=== PATIENT | female | born 1990 | race Caucasian/White ===

== ENCOUNTER → 2016-11-19 | Outpatient (CLI) | payer BC ==
--- NOTE | 2016-11-22 08:55 | US ---
Examination: Greater than 14 weeks transabdominal ultrasound with color Doppler and M-mode evaluatio n. HISTORY: Normal FINDINGS: LMP is 06/28/2016 EVALUATION: Anterior placenta with a cephalic lie and grade 1. Visually amniotic fluid is with in normal limits. Three-vessel cord is seen. Ventricles are within normal limits. Nuchal fold thickness is 2 mm. Four chamber heart is noted. Heart rate is 153 beats per minute. BIOMETRY AND GESTATIONAL AGE: Biparietal diameter 4.7 cm. The abdominal circumference measures 15.9 cm. The femoral length is 3.3 cm with head circumference of 17.8 cm. Gestational age is 20 weeks and 3 days. The expected date of delivery is approximately 04/05/2017. Fetus weight is 365 grams. Overall the fetus is within the 46th percentile. Other detail anatomy summarized into PACs sheet after the images. No anatomical anomalies. IMPRESSION: Single active IU with cephalic fetus. Anterior placenta with grade 1, no placenta previa. No anomalies are seen. Amniotic fluid appears within normal limits.
== END ==
LOC: MW.US 10:45
PROVIDERS: ATTEND Advanced Practice Midwife
DX: Z34.90 Encounter for supervision of normal pregnancy, unspecified, unspecified trimester (principal)
CPT/HCPCS: 76805; 76805-26

== ENCOUNTER → 2016-12-31 | Outpatient (CLI) | payer BC | LOC: MW.CHOBGYN 08:19 | PROVIDERS: ATTEND Advanced Practice Midwife | DX: Z34.90 Encounter for supervision of normal pregnancy, unspecified, unspecified trimester (principal) | CPT/HCPCS: 36415; 82950; 85027; 86850 ==

== ENCOUNTER 2017-03-22 20:21 | Inpatient (IN) | payer BC ==
[2017-03-22] MEDS ORDERED: Methylergonovine 0.2 MG/1 ML Amp IM PRN (20:49)
[2017-03-22] MEDS ORDERED: Acetaminophen 325 MG Tab PO PRN (20:49)
[2017-03-22] MEDS ORDERED: Ampicillin 2 GM in Sodium Chloride 0.9% 100 ML IV ONE (20:49)
[2017-03-22] MEDS ORDERED: Misoprostol 200 MCG Tab PO PRN (20:49)
[2017-03-22] MEDS ORDERED: Nalbuphine 10 MG/1 ML Vial IVPUSH PRN (20:49)
[2017-03-22] MEDS ORDERED: Carboprost Tromethamine 250 MCG/1 ML Amp IM PRN (20:49)
[2017-03-22] MEDS ORDERED: Sodium Chloride 0.9% 2.5 ML Syringe FLUSH PRN (20:49)
[2017-03-22] MEDS ORDERED: Lidocaine 1% 50 ML MDV INJECT PRN (20:49)
[2017-03-22] MEDS ORDERED: Sodium Chloride 0.9% 10 ML Syringe FLUSH PRN (20:49)
[2017-03-22] MEDS ORDERED: Water For Irrigation,Sterile 1,000 ML Container IRR PRN (20:49)
[2017-03-22] MEDS ORDERED: Butorphanol 1 MG/ML SDV IVPUSH PRN (20:49)
[2017-03-22] MEDS ORDERED: Acetaminophen 500 MG Tab PO ONE (20:56)
[2017-03-22] MEDS ORDERED: Oxytocin/Lactated Ringers 30 UNIT/500 ML BAG IV SCH (21:00)
[2017-03-22] MEDS: Lactated Ringers 1,000 ML IV SCH (21:22)
--- NOTE | 2017-03-22 21:26 | PCM.LDHP ---
L&D History of Present Illness - General Date of Service: 03/22/17 Admit Problem/Dx: Patient Status Order with Admit Dx/Problem 03/22/17 20:49 Patient Status [ADT] Routine Admission Diagnosis/Problem Admission Diagnosis/Problem 03/22/17 21:20 26 yo EDC 04/04/2017 38 1/7wks A+, RI, GBS pos. SROM clear fluid 1930 tonight. Source of Information: Patient History Limitations: Reports: No Limitations - History of Present Illness Improves with: Reports: None Worsens with: Reports: None Associated Symptoms: Reports: N - Related Data Allergies/Adverse Reactions: Allergies Allergy/AdvReac Type Severity Reaction Status Date / Time Sulfa (Sulfonamide Allergy Vomiting Verified 06/08/15 11:01 Antibiotics) Home Medications: Home Meds Vitamins Daily 1 tab PO DAILY 06/08/15 [History] Past Medical History - Past Health History Medical/Surgical History: Denies Medical/Surgical History Social & Family History - Tobacco Use Smoking Status *Q: Never Smoker - Alcohol Use Days Per Week of Alcohol Use: 0 - Recreational Drug Use Recreational Drug Use: No H&P Review of Systems - Review of Systems: Review Of Systems: See Below General: Reports: No Symptoms HEENT: Reports: No Symptoms Pulmonary: Reports: No Symptoms Cardiovascular: Reports: No Symptoms Gastrointestinal: Reports: No Symptoms Genitourinary: Reports: No Symptoms Musculoskeletal: Reports: No Symptoms Skin: Reports: No Symptoms Psychiatric: Reports: No Symptoms Neurological: Reports: No Symptoms Hematologic/Lymphatic: Reports: No Symptoms Immunologic: Reports: No Symptoms L&D Exam - Exam Exam: See Below - Vital Signs Vital Signs: Last Vital Signs Temp 38.2 C H 03/22/17 21:18 Pulse Resp BP Pulse Ox Weight: 50.349 kg - OB Specific Presentation: Vertex - Zacarias Score Zacarias Score Cervix Position: Midposition Zacarias Score Consistency: Soft Zacarias Score Effacement: >80% Zacarias Score Dilation: 3-4 cm Zacarias Score Infant's Station: -2 Zacarias Score Total: 9 - Exam General: Alert, Oriented, Cooperative Lungs: Normal Respiratory Effort GI/Abdominal Exam: Soft, Non-Tender, No Organomegaly Rectal Exam: Deferred Genitourinary: Cervical dilitation, Cervical fluid Back Exam: Full Range of Motion, Vertebral Tenderness Extremities: Non-Tender, No Pedal Edema Skin: Warm, Dry, Intact Neurological: Reflexes Equal Bilateral, Normal Speech, Normal Tone Psychiatric: Alert, Normal Affect, Normal Mood - Problem List (1) Supervision of normal IUP (intrauterine ) in primigravida SNOMED Code(s): 91367563, 464776026, 477418784, 143733171 ICD Code: Z34.00 - ENCNTR FOR SUPRVSN OF NORMAL FIRST , UNSP TRIMESTER Status: Acute Priority: High Current Visit: Yes Qualifiers: Trimester: third trimester Qualified Code(s): Z34.03 - Encounter for supervision of normal first , third trimester (2) SROM (spontaneous rupture of membranes) SNOMED Code(s): 585782009 ICD Code: MXF3187 - Status: Acute Priority: High Current Visit: Yes Problem List Initiated/Reviewed/Updated: Yes Orders Last 24hrs: Active Orders 24 hr Category Date Time Status Patient Status [ADT] Routine ADT 03/22/17 20:49 Active Heart Tones [RC] CONTINUOUS Care 03/22/17 20:49 Active Non Stress Test [RC] PER UNIT ROUTINE Care 03/22/17 20:49 Active May Shower [RC] ASDIRECTED Care 03/22/17 20:49 Active Notify Provider [RC] PRN Care 03/22/17 20:49 Active Up ad Tarah [RC] ASDIRECTED Care 03/22/17 20:49 Active Vaginal Exam [RC] PRN Care 03/22/17 20:49 Active Vital Signs [RC] PER UNIT ROUTINE Care 03/22/17 20:49 Active Clear Liquid Diet [DIET] Diet 03/23/17 Breakfast Active CBC W/O DIFF,HEMOGRAM [HEME] Routine Lab 03/22/17 20:49 Ordered TYPE AND SCREEN [BBK] Routine Lab 03/22/17 20:49 Ordered Acetaminophen [Tylenol] Med 03/22/17 20:49 Active 650 mg PO Q4H PRN Ampicillin 1 gm Med 03/23/17 01:00 Active Sodium Chloride 0.9% [Normal Saline] 50 ml IV Q4H Butorphanol [Stadol] Med 03/22/17 20:49 Active 1 mg IVPUSH Q1H PRN Carboprost Tromethamine [Hemabate DS] Med 03/22/17 20:49 Active 250 mcg IM ASDIRECTED PRN Lactated Ringers [Ringers, Lactated] 1,000 ml Med 03/22/17 21:00 Active IV ASDIRECTED Lidocaine 1% [Xylocaine 1%] Med 03/22/17 20:49 Active 50 ml INJECT .ONCE PRN Methylergonovine [Methergine] Med 03/22/17 20:49 Active 0.2 mg IM ASDIRECTED PRN Misoprostol [Cytotec] Med 03/22/17 20:49 Active 200 mcg PO .ONCE PRN Nalbuphine [Nubain] Med 03/22/17 20:49 Active 10 mg IVPUSH Q1H PRN Oxytocin/Lactated Ringers [Pitocin in LR 30 Units/500 Med 03/22/17 21:00 Active ML] 30 unit in 500 ml IV TITRATE Sodium Chloride 0.9% [Saline Flush] Med 03/22/17 20:49 Active 10 ml FLUSH ASDIRECTED PRN Sodium Chloride 0.9% [Saline Flush] Med 03/22/17 20:49 Active 2.5 ml FLUSH ASDIRECTED PRN Water For Irrigation,Sterile [Sterile Water for Med 03/22/17 20:49 Active Irrigation] 1,000 ml IRR ASDIRECTED PRN Scalp Electrode [WOMSER] Per Unit Routine Oth 03/22/17 20:49 Ordered Peripheral IV Insertion Adult [OM.PC] Routine Oth 03/22/17 20:49 Ordered Resuscitation Status Routine Resus Stat 03/22/17 20:49 Ordered Medication Orders Acetaminophen (Tylenol) 650 mg PO Q4H PRN PRN Reason: mild pain and fever Butorphanol Tartrate (Stadol) 1 mg IVPUSH Q1H PRN PRN Reason: Pain Carboprost Tromethamine (Hemabate Ds) 250 mcg IM ASDIRECTED PRN PRN Reason: Post Hemorrhage Lactated Ringer's (Ringers, Lactated) 1,000 mls @ 150 mls/hr IV ASDIRECTED SUDHA Oxytocin/Lactated Ringer's (Pitocin In Lr 30 Units/500 Ml) 30 unit in 500 mls @ 999 mls/hr IV TITRATE SUDHA; 999 MUNITS/MIN PRN Reason: Protocol Stop: 03/22/17 21:31 Ampicillin Sodium 1 gm/ Sodium (Chloride) 50 mls @ 100 mls/hr IV Q4H SUDHA Lidocaine HCl (Xylocaine 1%) 50 ml INJECT .ONCE PRN PRN Reason: Laceration repair Methylergonovine Maleate (Methergine) 0.2 mg IM ASDIRECTED PRN PRN Reason: Post Hemorrhage Misoprostol (Cytotec) 200 mcg PO .ONCE PRN PRN Reason: Post Hemorrhage Nalbuphine HCl (Nubain) 10 mg IVPUSH Q1H PRN PRN Reason: Pain (severe 7-10) Stop: 03/22/17 22:50 Sodium Chloride (Saline Flush) 10 ml FLUSH ASDIRECTED PRN PRN Reason: Keep Vein Open Sodium Chloride (Saline Flush) 2.5 ml FLUSH ASDIRECTED PRN PRN Reason: Keep Vein Open Sterile Water (Sterile Water For Irrigation) 1,000 ml IRR ASDIRECTED PRN PRN Reason: delivery Assessment/Plan Comment:: Labor A: 26 yo EDC 04/04/2017 38 1/7wks A+, RI, GBS pos. SROM clear fluid 1930 tonight. Temp of 100.7 P: Admit, antibiotic for GBS pos. Tylenol for temp, pain meds prn
[2017-03-23] MEDS ORDERED: Acetaminophen 325 MG Tab PO PRN (00:06)
[2017-03-23] MEDS: Ampicillin 1 GM in Sodium Chloride 0.9% 50 ML IV SCH ×4 (01:09→13:12)
[2017-03-23] MEDS ORDERED: Oxytocin/Lactated Ringers 30 UNIT/500 ML BAG IV SCH (03:00)
[2017-03-23] MEDS ORDERED: Oxytocin/Lactated Ringers 30 UNIT/500 ML BAG ONE (03:04)
[2017-03-23] MEDS: Lactated Ringers 1,000 ML IV SCH ×3 (09:05→11:04)
[2017-03-23] MEDS ORDERED: Ondansetron 4 MG/2 ML SDV IVPUSH PRN (09:22)
--- NOTE | 2017-03-23 10:06 | PCM.PREANE ---
Preanesthetic Assessment - Procedure Proposed Procedure: JEANNINE - Anesthesia/Transfusion/Family Hx Anesthesia History: No Prior Anesthesia Family History of Anesthesia Reaction: No - Review of Systems General: No Symptoms Pulmonary: No Symptoms Cardiovascular: No Symptoms Gastrointestinal: No Symptoms Neurological: No Symptoms Other: Reports: None - Physical Assessment Temperature: 38.2 C Vital Signs: Last Vital Signs Temp 38.2 C H 03/22/17 21:18 Pulse Resp BP Pulse Ox Height: 1.68 m Weight: 50.349 kg ASA Class: 1 Mental Status: Alert & Oriented x3 Dentition: Reports: Normal Dentition Lungs: Clear to Auscultation, Normal Respiratory Effort Cardiovascular: Regular Rate, Regular Rhythm - Lab Values: Laboratory Last Values WBC 19.40 K/uL (4.0-11.0) H 03/22/17 21:19 RBC 3.82 M/uL (4.30-5.90) L 03/22/17 21:19 Hgb 9.9 g/dL (12.0-16.0) L 03/22/17 21:19 Hct 30.6 % (36.0-46.0) L 03/22/17 21:19 MCV 80.1 fL (80.0-98.0) 03/22/17 21:19 MCH 25.9 pg (27.0-32.0) L 03/22/17 21:19 MCHC 32.4 g/dL (31.0-37.0) 03/22/17 21:19 RDW Std Deviation 43.8 fl (28.0-62.0) 03/22/17 21:19 RDW Coeff of Carola 15 % (11.0-15.0) 03/22/17 21:19 Plt Count 290 K/uL (150-400) 03/22/17 21:19 MPV 10.60 fL (7.40-12.00) 03/22/17 21:19 Nucleated RBC % 0.0 /100WBC 03/22/17 21:19 Nucleated RBCs # 0 K/uL 03/22/17 21:19 Blood Type A POSITIVE 03/22/17 21:19 Antibody Screen NEGATIVE 03/22/17 21:19 - Allergies Allergies/Adverse Reactions: Allergies Allergy/AdvReac Type Severity Reaction Status Date / Time Sulfa (Sulfonamide Allergy Vomiting Verified 06/08/15 11:01 Antibiotics) - Blood Blood Available: Yes - Anesthesia Plan Pre-Op Medication Ordered: None - Acknowledgements Anesthesia Type Planned: Epidural Pt an Appropriate Candidate for the Planned Anesthesia: Yes Alternatives and Risks of Anesthesia Discussed w Pt/Guardian: Yes Pt/Guardian Understands and Agrees with Anesthesia Plan: Yes PreAnesthesia Questionnaire - Past Health History Medical/Surgical History: Denies Medical/Surgical History Other Gastrointestinal History: GERD with Genitourinary History: Reports: UTI, Recurrent CLIENT INTEGRATION 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 History: Reports: Spontaneous - SUBSTANCE USE Smoking Status *Q: Never Smoker Days Per Week of Alcohol Use: 0 Recreational Drug Use History: No - HOME MEDS Home Medications: Home Meds Vitamins Daily 1 tab PO DAILY 06/08/15 [History] - CURRENT (IN HOUSE) MEDS Current Meds: Current Medications Acetaminophen (Tylenol) 650 mg PO Q4H PRN PRN Reason: Fever Butorphanol Tartrate (Stadol) 1 mg IVPUSH Q1H PRN PRN Reason: Pain Last Admin: 03/23/17 07:59 Dose: 1 mg Carboprost Tromethamine (Hemabate Ds) 250 mcg IM ASDIRECTED PRN PRN Reason: Post Hemorrhage Lactated Ringer's (Ringers, Lactated) 1,000 mls @ 150 mls/hr IV ASDIRECTED SUDHA Last Admin: 03/23/17 09:05 Dose: 999 mls/hr Ampicillin Sodium 1 gm/ Sodium (Chloride) 50 mls @ 100 mls/hr IV Q4H SUDHA Last Admin: 03/23/17 09:18 Dose: 100 mls/hr Oxytocin/Lactated Ringer's (Pitocin In Lr 30 Units/500 Ml) 30 unit in 500 mls @ 2 mls/hr IV TITRATE SUDHA; 2 MUNITS/MIN PRN Reason: Protocol Last Titration: 03/23/17 07:49 Dose: 12 munits/min, 12 mls/hr Lidocaine HCl (Xylocaine 1%) 50 ml INJECT .ONCE PRN PRN Reason: Laceration repair Methylergonovine Maleate (Methergine) 0.2 mg IM ASDIRECTED PRN PRN Reason: Post Hemorrhage Misoprostol (Cytotec) 200 mcg PO .ONCE PRN PRN Reason: Post Hemorrhage Ondansetron HCl (Zofran) 4 mg IVPUSH Q4H PRN PRN Reason: Nausea Last Admin: 03/23/17 09:58 Dose: 4 mg Sodium Chloride (Saline Flush) 10 ml FLUSH ASDIRECTED PRN PRN Reason: Keep Vein Open Sodium Chloride (Saline Flush) 2.5 ml FLUSH ASDIRECTED PRN PRN Reason: Keep Vein Open Sterile Water (Sterile Water For Irrigation) 1,000 ml IRR ASDIRECTED PRN PRN Reason: delivery Discontinued Medications Acetaminophen (Tylenol) 650 mg PO Q4H PRN PRN Reason: mild pain and fever Acetaminophen (Tylenol Extra Strength) 1,000 mg PO ONETIME ONE Stop: 03/22/17 20:57 Last Admin: 03/22/17 21:18 Dose: 1,000 mg Ampicillin Sodium 2 gm/ Sodium (Chloride) 100 mls @ 200 mls/hr IV ONETIME ONE Stop: 03/22/17 21:18 Last Admin: 03/22/17 21:34 Dose: 200 mls/hr Oxytocin/Lactated Ringer's (Pitocin In Lr 30 Units/500 Ml) 30 unit in 500 mls @ 999 mls/hr IV TITRATE SUDHA; 999 MUNITS/MIN PRN Reason: Protocol Stop: 03/22/17 21:31 Oxytocin/Lactated Ringer's (Pitocin In Lr 30 Units/500 Ml) Confirm Administered Dose 30 unit in 500 mls @ as directed .ROUTE .STK-MED ONE Stop: 03/23/17 03:05 Nalbuphine HCl (Nubain) 10 mg IVPUSH Q1H PRN PRN Reason: Pain (severe 7-10) Stop: 03/22/17 22:50
[2017-03-23] MEDS ORDERED: fentaNYL 100 MCG/2 ML SDV ONE ×2 (10:09→18:16)
[2017-03-23] MEDS ORDERED: Ropivacaine HCl/PF 100 ML ONE ×2 (10:09→18:17)
[2017-03-23] MEDS ORDERED: Ranitidine 15 MG/ML Syrup 10 ML UD Cup PO ONE (15:30)
[2017-03-23] MEDS ORDERED: Benzocaine/Menthol 20%-0.5% Spray 78 GM Cannister TOP PRN (19:27)
[2017-03-23] MEDS ORDERED: Acetaminophen 500 MG Tab PO PRN (19:27)
[2017-03-23] MEDS ORDERED: Lanolin 100% Cream 7 GM Tube TOP PRN (19:27)
[2017-03-23] MEDS ORDERED: oxyCODONE 5 MG Tab PO PRN (19:27)
[2017-03-23] MEDS ORDERED: Witch Hazel Medicated Pads 40/Jar TOP PRN (19:27)
[2017-03-23] MEDS ORDERED: Ibuprofen 400 MG Tab PO PRN (19:27)
[2017-03-23] MEDS ORDERED: Bisacodyl 10 MG Supp RECTAL PRN (19:27)
--- NOTE | 2017-03-23 19:34 | PCM.DEL ---
L & D Note - General Info Date of Service: 03/23/17 Mother's Due Date: 04/04/17 - Delivery Note Labor: Spontaneous, Augmented by Oxytocin Delivery Outcome: Livebirth Infant Delivery Method: Spontaneous Vaginal Delivery Delivery Mode: Spontaneous Presentation: Vertex Nuchal Cord: Present Anesthesia Type: Epidural Anesthetic: Lidocaine (Xylocaine) 1% Plain Local Anesthetic Volume: 2cc Amniotic Fluid Description: Clear Episiotomy Type: None Laceration: 2nd Degree, Sulcus Suture type: Vicryl Suture size: 3-0 Placenta: Intact, Spontaneous Cord: 3 Vessels Estimated Blood Loss: 200 Resuscitation Needed: No : Warmed Score 1 min: 5 Score 5 min: 7 Score 10 min: 8 Second Stage Interventions: Reports: Pushing Effectively, Pushing, Pulls Own Legs Back Delivery Comments (Free Text/Narrative):: of viable male over intact perineum. Head delivered with good pushing, nuchle x1 reduced over head, shoulders and body followed easily. Infant to mothers abd with RN at for evaluation. stunned and not crying at 45sec of life. CC x2 and cut. Inf to warmer with spont cry. O2 sats good. Pitocin to IVF. Placenta delivered grossly intact. Inspection noted 2nd degree sulcus tear, repaired with 3-0 yajaira in usual manor. EBL 200cc, APGARS 5/7/8. Wt pending bonding with mother. Induction Criteria - Augmentation Estimated Pelvis: Reports: Adequate Weight Estimated:: Reports: AGA Reassuring Monitoring Strip: Yes Absence of Tachy Systole: Yes - General Info Date of Service: 03/23/17 Admission Dx/Problem (Free Text): Patient Status Order with Admit Dx/Problem 03/22/17 20:49 Patient Status [ADT] Routine Admission Diagnosis/Problem Admission Diagnosis/Problem 03/22/17 21:20 26 yo EDC 04/04/2017 38 1/7wks A+, RI, GBS pos. SROM clear fluid 1930 tonight. Functional Status: Reports: Pain Controlled, Tolerating Diet - Review of Systems General: Reports: No Symptoms HEENT: Reports: No Symptoms Pulmonary: Reports: No Symptoms Cardiovascular: Reports: No Symptoms Gastrointestinal: Reports: No Symptoms Genitourinary: Reports: No Symptoms Musculoskeletal: Reports: No Symptoms Skin: Reports: No Symptoms Neurological: Reports: No Symptoms Psychiatric: Reports: No Symptoms - Patient Data Vitals - Most Recent: Last Vital Signs Temp 38.2 C H 03/23/17 10:06 Pulse Resp BP Pulse Ox Weight - Most Recent: 50.349 kg Lab Results Last 24 Hours: Laboratory Results - last 24 hr 03/22/17 03/22/17 Range/Units 21:19 21:19 WBC 19.40 H (4.0-11.0) K/uL RBC 3.82 L (4.30-5.90) M/uL Hgb 9.9 L (12.0-16.0) g/dL Hct 30.6 L (36.0-46.0) % MCV 80.1 (80.0-98.0) fL MCH 25.9 L (27.0-32.0) pg MCHC 32.4 (31.0-37.0) g/dL RDW Std Deviation 43.8 (28.0-62.0) fl RDW Coeff of Carola 15 (11.0-15.0) % Plt Count 290 (150-400) K/uL MPV 10.60 (7.40-12.00) fL Nucleated RBC % 0.0 /100WBC Nucleated RBCs # 0 K/uL Blood Type A POSITIVE Antibody Screen NEGATIVE Med Orders - Current: Current Medications Discontinued Medications Acetaminophen (Tylenol) 650 mg PO Q4H PRN PRN Reason: mild pain and fever Acetaminophen (Tylenol Extra Strength) 1,000 mg PO ONETIME ONE Stop: 03/22/17 20:57 Last Admin: 03/22/17 21:18 Dose: 1,000 mg Acetaminophen (Tylenol) 650 mg PO Q4H PRN PRN Reason: Fever Butorphanol Tartrate (Stadol) 1 mg IVPUSH Q1H PRN PRN Reason: Pain Last Admin: 03/23/17 07:59 Dose: 1 mg Carboprost Tromethamine (Hemabate Ds) 250 mcg IM ASDIRECTED PRN PRN Reason: Post Hemorrhage Fentanyl (Sublimaze) Confirm Administered Dose 100 mcg .ROUTE .STK-MED ONE Stop: 03/23/17 10:10 Last Admin: 03/23/17 10:56 Dose: Not Given Fentanyl (Sublimaze) Confirm Administered Dose 100 mcg .ROUTE .STK-MED ONE Stop: 03/23/17 18:17 Ampicillin Sodium 2 gm/ Sodium (Chloride) 100 mls @ 200 mls/hr IV ONETIME ONE Stop: 03/22/17 21:18 Last Admin: 03/22/17 21:34 Dose: 200 mls/hr Lactated Ringer's (Ringers, Lactated) 1,000 mls @ 150 mls/hr IV ASDIRECTED SUDHA Last Admin: 03/23/17 11:04 Dose: 150 mls/hr Oxytocin/Lactated Ringer's (Pitocin In Lr 30 Units/500 Ml) 30 unit in 500 mls @ 999 mls/hr IV TITRATE SUDHA; 999 MUNITS/MIN PRN Reason: Protocol Stop: 03/22/17 21:31 Ampicillin Sodium 1 gm/ Sodium (Chloride) 50 mls @ 100 mls/hr IV Q4H SUDHA Last Admin: 03/23/17 13:12 Dose: 100 mls/hr Oxytocin/Lactated Ringer's (Pitocin In Lr 30 Units/500 Ml) 30 unit in 500 mls @ 2 mls/hr IV TITRATE SUDHA; 2 MUNITS/MIN PRN Reason: Protocol Last Titration: 03/23/17 15:45 Dose: 16 munits/min, 16 mls/hr Oxytocin/Lactated Ringer's (Pitocin In Lr 30 Units/500 Ml) Confirm Administered Dose 30 unit in 500 mls @ as directed .ROUTE .[facility]-MED ONE Stop: 03/23/17 03:05 Last Admin: 03/23/17 10:55 Dose: Not Given Ropivacaine (Naropin 0.2%) Confirm Administered Dose 100 mls @ as directed .ROUTE .[facility]-MED ONE Stop: 03/23/17 10:10 Last Admin: 03/23/17 10:55 Dose: Not Given Ropivacaine (Naropin 0.2%) Confirm Administered Dose 100 mls @ as directed .ROUTE .[facility]-MED ONE Stop: 03/23/17 18:18 Lidocaine HCl (Xylocaine 1%) 50 ml INJECT .ONCE PRN PRN Reason: Laceration repair Methylergonovine Maleate (Methergine) 0.2 mg IM ASDIRECTED PRN PRN Reason: Post Hemorrhage Misoprostol (Cytotec) 200 mcg PO .ONCE PRN PRN Reason: Post Hemorrhage Nalbuphine HCl (Nubain) 10 mg IVPUSH Q1H PRN PRN Reason: Pain (severe 7-10) Stop: 03/22/17 22:50 Ondansetron HCl (Zofran) 4 mg IVPUSH Q4H PRN PRN Reason: Nausea Last Admin: 03/23/17 09:58 Dose: 4 mg Ranitidine HCl (Zantac) 150 mg PO ONETIME ONE Stop: 03/23/17 15:31 Last Admin: 03/23/17 15:28 Dose: 150 mg Sodium Chloride (Saline Flush) 10 ml FLUSH ASDIRECTED PRN PRN Reason: Keep Vein Open Sodium Chloride (Saline Flush) 2.5 ml FLUSH ASDIRECTED PRN PRN Reason: Keep Vein Open Sterile Water (Sterile Water For Irrigation) 1,000 ml IRR ASDIRECTED PRN PRN Reason: delivery - Exam General: Alert, Oriented, Cooperative, No Acute Distress Lungs: Normal Respiratory Effort GI/Abdominal Exam: Soft, Non-Tender, No Organomegaly (Female) Exam: Normal External Exam, Normal Bimanual Exam, Vaginal Bleeding, Vaginal Tears Back Exam: Full Range of Motion Extremities: Normal Range of Motion, Non-Tender, Pedal Edema Skin: Warm, Dry, Intact Wound/Incisions: Healing Well Neurological: No New Focal Deficit, Normal Speech, Normal Tone Psy/Mental Status: Alert, Normal Affect, Normal Mood - Problem List & Annotations (1) Supervision of normal IUP (intrauterine ) in primigravida SNOMED Code(s): 83552336, 564231583, 618623778, 934480366 Code(s): Z34.00 - ENCNTR FOR SUPRVSN OF NORMAL FIRST , UNSP TRIMESTER Status: Acute Priority: High Current Visit: Yes Qualifiers: Trimester: third trimester Qualified Code(s): Z34.03 - Encounter for supervision of normal first , third trimester (2) SROM (spontaneous rupture of membranes) SNOMED Code(s): 663687299 Code(s): BSF8143 - Status: Acute Priority: High Current Visit: Yes (3) (normal spontaneous vaginal delivery) SNOMED Code(s): 86340437 Code(s): O80 - ENCOUNTER FOR FULL-TERM UNCOMPLICATED DELIVERY Status: Acute Priority: Medium Current Visit: Yes - Problem List Review Problem List Initiated/Reviewed/Updated: Yes - My Orders Last 24 Hours: My Active Orders 03/22/17 20:49 Heart Tones [RC] CONTINUOUS Non Stress Test [RC] PER UNIT ROUTINE May Shower [RC] ASDIRECTED Notify Provider [RC] PRN Up ad Tarah [RC] ASDIRECTED Vaginal Exam [RC] PRN Vital Signs [RC] PER UNIT ROUTINE 03/23/17 19:27 Acetaminophen [Tylenol Extra Strength] 1,000 mg PO Q4H PRN Acetaminophen [Tylenol Extra Strength] 500 mg PO Q4H PRN Benzocaine/Menthol [Dermoplast Pain Relief 20%-0.5% [place]] 78 gm TOP ASDIRECTED PRN Bisacodyl [Dulcolax] 10 mg RECTAL .ONCE PRN Docusate Sodium [Colace] 100 mg PO BID PRN Ibuprofen [Motrin] 400 mg PO Q4H PRN Ibuprofen [Motrin] 800 mg PO Q6H PRN Lanolin [Lansinoh HPA] See Dose Instructions TOP ASDIRECTED PRN Witch Mara [Tucks] 1 pad TOP ASDIRECTED PRN oxyCODONE 5 mg PO Q2H PRN Resuscitation Status Routine 03/23/17 19:28 Patient Status [ADT] Routine December Shower [RC] ASDIRECTED Up ad Tarah [RC] ASDIRECTED Vital Signs [RC] PER UNIT ROUTINE Assess Lochia [WOMSER] Per Unit Routine Assess Uterine Involution [WOMSER] Per Unit Routine Peripheral IV Discontinue [OM.PC] Routine 03/24/17 Breakfast Regular Diet [DIET] - Assessment Assessment:: of healthy boy, APGARS 5/7/8, Wt pending bonding. EBL 200cc, 2nd degree lac with repair, Bonding well. - Plan Plan:: Labor A: 26 yo EDC 04/04/2017 38 1/7wks A+, RI, GBS pos. SROM clear fluid 1930 tonight. Temp of 100.7 P: Admit, antibiotic for GBS pos. Tylenol for temp, pain meds prn Delivery routine pp plan of care.
[2017-03-23] MEDS: Ibuprofen 800 MG Tab PO PRN (19:57)
[2017-03-23] MEDS: Acetaminophen 500 MG Tab PO PRN ×2 (19:57→23:38)
[2017-03-23] MEDS: Docusate Sodium 100 MG Cap PO PRN (19:58)
--- NOTE | 2017-03-24 08:21 | PCM.DCSUM1 ---
Discharge Summary - Hospital Course Free Text/Narrative:: Discharge home with infant. Follow up in 6 weeks or sooner if needed. - Discharge Data Discharge Date: 03/24/17 Discharge Disposition: Home, Self-Care 01 Condition: Good - Discharge Diagnosis/Problem(s) (1) Supervision of normal IUP (intrauterine ) in primigravida SNOMED Code(s): 59614444, 585679446, 536282088, 677302119 ICD Code: Z34.00 - ENCNTR FOR SUPRVSN OF NORMAL FIRST , UNSP TRIMESTER Status: Acute Priority: High Current Visit: Yes Qualifiers: Trimester: third trimester Qualified Code(s): Z34.03 - Encounter for supervision of normal first , third trimester (2) SROM (spontaneous rupture of membranes) SNOMED Code(s): 916322637 ICD Code: [id number] - Status: Acute Priority: High Current Visit: Yes (3) (normal spontaneous vaginal delivery) SNOMED Code(s): 43356777 ICD Code: O80 - ENCOUNTER FOR FULL-TERM UNCOMPLICATED DELIVERY Status: Acute Priority: Medium Current Visit: Yes - Patient Instructions Diet: Usual Diet as Tolerated Activity: As Tolerated, Non Weight Bearing Driving: May Drive Today Showering/Bathing: May Shower Notify Provider of: Fever, Increased Pain, Swelling and Redness, Nausea and/or Vomiting Other/Special Instructions: Discharge home with infant. Follow up in 6 weeks or sooner if needed. - Discharge Plan Home Medications: Home Meds Vitamins Daily 1 tab PO DAILY 06/08/15 [History] Referrals: [facility] [Outside] Jacque Hatch CNM [Primary Care Provider] - 05/04/17 10:45 am - General Info Date of Service: 03/24/17 Admission Dx/Problem (Free Text: Patient Status Order with Admit Dx/Problem 03/22/17 20:49 Patient Status [ADT] Routine Admission Diagnosis/Problem Admission Diagnosis/Problem 03/22/17 21:20 26 yo EDC 04/04/2017 38 1/7wks A+, RI, GBS pos. SROM clear fluid 1930 tonight. Functional Status: Reports: Pain Controlled, Tolerating Diet, Ambulating, Urinating - Review of Systems General: Reports: No Symptoms HEENT: Reports: No Symptoms Pulmonary: Reports: No Symptoms Cardiovascular: Reports: No Symptoms Gastrointestinal: Reports: No Symptoms Genitourinary: Reports: No Symptoms Musculoskeletal: Reports: No Symptoms Skin: Reports: No Symptoms Neurological: Reports: No Symptoms Psychiatric: Reports: No Symptoms - Patient Data Vitals - Most Recent: Last Vital Signs Temp 36.5 C 03/24/17 04:00 Pulse 68 03/24/17 04:00 Resp 16 03/24/17 04:00 BP 105/64 03/24/17 04:00 Pulse Ox 98 03/24/17 04:00 Weight - Most Recent: 50.349 kg Med Orders - Current: Current Medications Acetaminophen (Tylenol Extra Strength) 500 mg PO Q4H PRN PRN Reason: Pain Acetaminophen (Tylenol Extra Strength) 1,000 mg PO Q4H PRN PRN Reason: Pain Last Admin: 03/23/17 23:38 Dose: 1,000 mg Benzocaine/Menthol (Dermoplast Pain Relief 20%-0.5% [place]) 78 gm TOP ASDIRECTED PRN PRN Reason: Perineal Comfort Measure Last Admin: 03/23/17 19:59 Dose: 1 canister Bisacodyl (Dulcolax) 10 mg RECTAL .ONCE PRN PRN Reason: Constipation Docusate Sodium (Colace) 100 mg PO BID PRN PRN Reason: Constipation Last Admin: 03/23/17 19:58 Dose: 100 mg Emollient Ointment (Lansinoh Hpa) 0 gm TOP ASDIRECTED PRN PRN Reason: Sore Nipples Last Admin: 03/23/17 19:58 Dose: 1 tube Ibuprofen (Motrin) 400 mg PO Q4H PRN PRN Reason: Pain Ibuprofen (Motrin) 800 mg PO Q6H PRN PRN Reason: Pain Last Admin: 03/23/17 19:57 Dose: 800 mg Oxycodone HCl (Oxycodone) 5 mg PO Q2H PRN PRN Reason: Pain Witch Mara (Tucks) 1 pad TOP ASDIRECTED PRN PRN Reason: comfort care Last Admin: 03/23/17 19:58 Dose: 1 tub Discontinued Medications Acetaminophen (Tylenol) 650 mg PO Q4H PRN PRN Reason: mild pain and fever Acetaminophen (Tylenol Extra Strength) 1,000 mg PO ONETIME ONE Stop: 03/22/17 20:57 Last Admin: 03/22/17 21:18 Dose: 1,000 mg Acetaminophen (Tylenol) 650 mg PO Q4H PRN PRN Reason: Fever Butorphanol Tartrate (Stadol) 1 mg IVPUSH Q1H PRN PRN Reason: Pain Last Admin: 03/23/17 07:59 Dose: 1 mg Carboprost Tromethamine (Hemabate Ds) 250 mcg IM ASDIRECTED PRN PRN Reason: Post Hemorrhage Fentanyl (Sublimaze) Confirm Administered Dose 100 mcg .ROUTE .STK-MED ONE Stop: 03/23/17 10:10 Last Admin: 03/23/17 10:56 Dose: Not Given Fentanyl (Sublimaze) Confirm Administered Dose 100 mcg .ROUTE .STK-MED ONE Stop: 03/23/17 18:17 Last Admin: 03/23/17 19:57 Dose: Not Given Ampicillin Sodium 2 gm/ Sodium (Chloride) 100 mls @ 200 mls/hr IV ONETIME ONE Stop: 03/22/17 21:18 Last Admin: 03/22/17 21:34 Dose: 200 mls/hr Lactated Ringer's (Ringers, Lactated) 1,000 mls @ 150 mls/hr IV ASDIRECTED SUDHA Last Admin: 03/23/17 11:04 Dose: 150 mls/hr Oxytocin/Lactated Ringer's (Pitocin In Lr 30 Units/500 Ml) 30 unit in 500 mls @ 999 mls/hr IV TITRATE SUDHA; 999 MUNITS/MIN PRN Reason: Protocol Stop: 03/22/17 21:31 Ampicillin Sodium 1 gm/ Sodium (Chloride) 50 mls @ 100 mls/hr IV Q4H SUDHA Last Admin: 03/23/17 13:12 Dose: 100 mls/hr Oxytocin/Lactated Ringer's (Pitocin In Lr 30 Units/500 Ml) 30 unit in 500 mls @ 2 mls/hr IV TITRATE SUDHA; 2 MUNITS/MIN PRN Reason: Protocol Last Titration: 03/23/17 19:00 Dose: 999 mls/hr Oxytocin/Lactated Ringer's (Pitocin In Lr 30 Units/500 Ml) Confirm Administered Dose 30 unit in 500 mls @ as directed .ROUTE .STK-MED ONE Stop: 03/23/17 03:05 Last Admin: 03/23/17 10:55 Dose: Not Given Ropivacaine (Naropin 0.2%) Confirm Administered Dose 100 mls @ as directed .ROUTE .STK-MED ONE Stop: 03/23/17 10:10 Last Admin: 03/23/17 10:55 Dose: Not Given Ropivacaine (Naropin 0.2%) Confirm Administered Dose 100 mls @ as directed .ROUTE .[place]gage-MED ONE Stop: 03/23/17 18:18 Last Admin: 03/23/17 19:57 Dose: Not Given Lidocaine HCl (Xylocaine 1%) 50 ml INJECT .ONCE PRN PRN Reason: Laceration repair Last Admin: 03/23/17 19:59 Dose: 50 ml Methylergonovine Maleate (Methergine) 0.2 mg IM ASDIRECTED PRN PRN Reason: Post Hemorrhage Misoprostol (Cytotec) 200 mcg PO .ONCE PRN PRN Reason: Post Hemorrhage Nalbuphine HCl (Nubain) 10 mg IVPUSH Q1H PRN PRN Reason: Pain (severe 7-10) Stop: 03/22/17 22:50 Ondansetron HCl (Zofran) 4 mg IVPUSH Q4H PRN PRN Reason: Nausea Last Admin: 03/23/17 09:58 Dose: 4 mg Ranitidine HCl (Zantac) 150 mg PO ONETIME ONE Stop: 03/23/17 15:31 Last Admin: 03/23/17 15:28 Dose: 150 mg Sodium Chloride (Saline Flush) 10 ml FLUSH ASDIRECTED PRN PRN Reason: Keep Vein Open Sodium Chloride (Saline Flush) 2.5 ml FLUSH ASDIRECTED PRN PRN Reason: Keep Vein Open Sterile Water (Sterile Water For Irrigation) 1,000 ml IRR ASDIRECTED PRN PRN Reason: delivery - Exam General: Reports: Alert, Oriented, Cooperative, No Acute Distress Lungs: Reports: Normal Respiratory Effort GI/Abdominal Exam: Soft, Non-Tender, No Distention (Female) Exam: Vaginal Bleeding Rectal (Female) Exam: Deferred Back Exam: Reports: Full Range of Motion Extremities: Normal Range of Motion, No Pedal Edema Skin: Reports: Warm, Dry, Intact Wound/Incisions: Reports: Healing Well Neurological: Reports: No New Focal Deficit, Normal Speech, Normal Tone Psy/Mental Status: Reports: Alert, Normal Affect, Normal Mood *Q Meaningful Use (DIS) - VTE *Q VTE Criteria *Q: - Stroke *Q Stroke Criteria *Q: - AMI *Q AMI Criteria *Q:
[2017-03-24] MEDS: Acetaminophen 500 MG Tab PO PRN (08:49)
[2017-03-24] MEDS: Docusate Sodium 100 MG Cap PO PRN (12:23)
[2017-03-24] MEDS: Ibuprofen 800 MG Tab PO PRN (21:03)
[2017-03-24 23:18] VITALS: BP 113/71
== END 2017-03-24 21:50 | disposition home or self-care (01) | DRG 560 ==
LOC: MW.OBCHECK 20:21 → MW.OB 20:24 → MW.OBCHECK 20:46 → OBSVTOIN 03-23 18:59 → MW.OB 03-23 23:00
PROVIDERS: ADMIT Obstetrics & Gynecology; ATTEND Obstetrics & Gynecology
PROC: 10E0XZZ Delivery of Products of Conception, External Approach (ICD-10-PCS; principal; 2017-03-23)
PROC: 0KQM0ZZ Repair Perineum Muscle, Open Approach (ICD-10-PCS; 2017-03-23)
DX: O42.02 Full-term premature rupture of membranes, onset of labor within 24 hours of rupture (principal); O70.1 Second degree perineal laceration during delivery; O99.824 Streptococcus B carrier state complicating childbirth; Z3A.38 38 weeks gestation of pregnancy; Z37.0 Single live birth
CPT/HCPCS: 36415; 59025; 85027; 86850; 86900; 86901; A9270-GY; J0290; J0595; J2405; J7030; J7050; J7120

== ENCOUNTER 2019-01-12 11:07 | Emergency (ER) | payer BC ==
[2019-01-12 11:16] VITALS: BP 121/78
--- NOTE | 2019-01-12 13:13 | CT ---
INDICATION: HEADACHES X2 MONTHS Technique: Non-contrast head CT scan. Findings: No abnormal foci of altered attenuation in the brain parenchyma. No midline shift or mass effect. No hydrocephalus. No abnormal extra-axial fluid collections. No abnormalities identified in the visualized portions of the skull and scalp. Air fluid level in the right maxillary sinus may represent an acute sinusitis. Impression: No evidence of acute intracranial abnormalities. Air fluid level in the right maxillary sinus may represent an acute sinusitis. Dictated by: Cuate Leiva MD @ 01/12/2019 13:11:05 (Electronically Signed)
--- NOTE | 2019-01-12 13:15 | EDM.PDOC ---
ED HPI GENERAL MEDICAL PROBLEM - General Chief Complaint: ENT Problem Stated Complaint: DRAINAGE FROM NOSE, LIGHT HEADED Time Seen by Provider: 01/12/19 13:13 Source of Information: Reports: Patient - History of Present Illness INITIAL COMMENTS - FREE TEXT/NARRATIVE: HISTORY AND PHYSICAL: History of present illness: [Patient presents with chronic mild headaches for one month 2 out of 10 nonradiating frontal headaches, the left copious exudate exudative nasal discharge today on the left nasally today No fever nausea vomiting chills sweats no chest pain shortness of breath dizziness or palpitation no bowel or urine symptoms today ] Review of systems: As per history of present illness and below otherwise all systems reviewed and negative. Past medical history: As per history of present illness and as reviewed below otherwise noncontributory. Surgical history: As per history of present illness and as reviewed below otherwise noncontributory. Social history: No reported history of drug or alcohol abuse. Family history: As per history of present illness and as reviewed below otherwise noncontributory. Physical exam: HEENT: Atraumatic, normocephalic, pupils reactive, negative for conjunctival pallor or scleral icterus, mucous membranes moist, throat clear, neck supple, nontender, trachea midline. No sinus tenderness Lungs: Clear to auscultation, breath sounds equal bilaterally, chest nontender. Heart: S1S2, regular, negative for clicks, rubs, or JVD. Abdomen: Soft, nondistended, nontender. Negative for masses or hepatosplenomegaly. Negative for costovertebral tenderness. Pelvis: Stable nontender. Genitourinary: Deferred. Rectal: Deferred. Extremities: Atraumatic, negative for cords or calf pain. Neurovascular unremarkable. Neuro: Awake, alert, oriented. Cranial nerves II through XII unremarkable. Cerebellum unremarkable. Motor and sensory unremarkable throughout. Exam nonfocal. Diagnostics: [CT head no contrast ] Therapeutics: [Levaquin 500 by mouth daily #10 no refill ] Impression: Sinusitis Definitive disposition and diagnosis as appropriate pending reevaluation and review of above. 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 Musculoskeletal History: Reports: None Neurological History: Reports: None Psychiatric History: Reports: None Endocrine/Metabolic History: Reports: None Hematologic History: Reports: None Immunologic History: Reports: None Oncologic (Cancer) History: Reports: None Dermatologic History: Reports: None - Infectious Disease History Infectious Disease History: Reports: None - Past Surgical History Head Surgeries/Procedures: Reports: None Social & Family History - Tobacco Use Smoking Status *Q: Never Smoker Second Hand Smoke Exposure: No - Caffeine Use Caffeine Use: Reports: Coffee ED ROS GENERAL - Review of Systems Review Of Systems: See Below ED EXAM, GENERAL - Physical Exam Exam: See Below Course - Vital Signs Last Recorded V/S: Last Vital Signs Temp 97.2 F 01/12/19 11:15 Pulse 84 01/12/19 11:15 Resp 18 01/12/19 11:15 BP 121/78 01/12/19 11:15 Pulse Ox 98 01/12/19 11:15 - Orders/Labs/Meds Labs: Laboratory Tests 01/12/19 Range/Units 11:44 Urine HCG, Qual NEGATIVE (NEGATIVE) Departure - Departure Time of Disposition: 13:15 Disposition: Home, Self-Care 01 Condition: Good Clinical Impression: Sinusitis - Discharge Information Referrals: PCP,Unknown [Primary Care Provider] - Additional Instructions: The following information is given to patients seen in the emergency department who are being discharged to home. This information is to outline your options for follow-up care. We provide all patients seen in our emergency department with a follow-up referral. The need for follow-up, as well as the timing and circumstances, are variable depending upon the specifics of your emergency department visit. If you don't have a primary care physician on staff, we will provide you with a referral. We always advise you to contact your personal physician following an emergency department visit to inform them of the circumstance of the visit and for follow-up with them and/or the need for any referrals to a consulting specialist. The emergency department will also refer you to a specialist when appropriate. This referral assures that you have the opportunity for follow-up care with a specialist. All of these measure are taken in an effort to provide you with optimal care, which includes your follow-up. Under all circumstances we always encourage you to contact your private physician who remains a resource for coordinating your care. When calling for follow-up care, please make the office aware that this follow-up is from your recent emergency room visit. If for any reason you are refused follow-up, please contact the [facility] emergency department at and asked to speak to the emergency department charge nurse.
== END 2019-01-12 13:22 | disposition home or self-care (01) ==
LOC: MW.ED 11:07
DX: J32.9 Chronic sinusitis, unspecified (principal); Z88.2 Allergy status to sulfonamides
CPT/HCPCS: 70450; 70450-26; 81025; 99282; 99284-25

== ENCOUNTER 2020-04-17 08:53 | Emergency (ER) | payer BC ==
--- NOTE | 2020-04-17 09:16 | EDM.PDOC ---
ED HPI GENERAL MEDICAL PROBLEM - General Chief Complaint: ENT Problem Stated Complaint: BLEEDING AFTER TONSILS REMOVED Time Seen by Provider: 04/17/20 08:59 Source of Information: Reports: Patient - History of Present Illness INITIAL COMMENTS - FREE TEXT/NARRATIVE: History of present illness: 29-year-old female presenting with bleeding from tonsillectomy site. Apparently she had a tonsillectomy 1 week ago. This morning shortly before coming in today, she had a mild coughing fit and then noticed having bleeding from her tonsillectomy site. She called her ENT doctor, Dr. Newton Orozco in [place] and the office told her to come straight to the ER here. However now upon arriving here the bleeding has become minimal and nearly stopped. Pain well-tolerated on her pain medication regimen at home, ibuprofen and hydrocodone. No other complaints. No fever. No difficulty breathing. Review of systems: As per history of present illness and below otherwise all systems reviewed and negative. Past medical history: As per history of present illness and as reviewed below otherwise noncontributory. None Surgical history: As per history of present illness and as reviewed below otherwise nonc ontributory. Tonsillectomy Social history: No reported history of drug or alcohol abuse. Family history: As per history of present illness and as reviewed below otherwise noncontributory. Physical exam: GEN: no acute distress, well appearing HEENT: Atraumatic, normocephalic, mucous membranes moist, tonsillectomy sites with signs of recent bleeding, scabeschar appears to have displaced, but no active bleeding at this time Neck: supple, nontender, trachea midline. Lungs: No respiratory distress. Heart: RRR Extremities: Atraumatic. Neurovascularly intact. Neuro: Awake, alert, oriented. Neuro Exam nonfocal. Skin: warm, dry, no lesions Diagnostics: [] Therapeutics: [] MDM: Impression: [] Plan: [] Definitive disposition and diagnosis as appropriate pending reevaluation and review of above. Throat Pain Score (Numeric/FACES): 8 - Related Data Allergies Allergy/AdvReac Type Severity Reaction Status Date / Time Sulfa (Sulfonamide Allergy Vomiting Verified 04/17/20 09:13 Antibiotics) Home Meds: Home Meds Hydrocodone Bit/Homatrop Me-Br [Hydrocodone Compound Syrup] 5 ml PO ASDIRECTED 04/17/20 [History] Ibuprofen 600 mg PO ASDIRECTED 04/17/20 [History] Past Medical History - Past Health History Medical/Surgical History: Denies Medical/Surgical History HEENT History: Reports: None Cardiovascular History: Reports: None Respiratory History: Reports: None Other Gastrointestinal History: GERD with Genitourinary History: Reports: UTI, Recurrent 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 Musculoskeletal History: Reports: None Neurological History: Reports: None Psychiatric History: Reports: None Endocrine/Metabolic History: Reports: None Hematologic History: Reports: None Immunologic History: Reports: None Oncologic (Cancer) History: Reports: None Dermatologic History: Reports: None - Infectious Disease History Infectious Disease History: Reports: None - Past Surgical History Head Surgeries/Procedures: Reports: None Social & Family History - Caffeine Use Caffeine Use: Reports: Coffee ED ROS ENT - Review of Systems Review Of Systems: See Below (See HPI) ED EXAM, ENT - Physical Exam Exam: See Below (See HPI) Course - Vital Signs Text/Narrative:: Mild bleeding 1 week after tonsillectomy. No signs of severe hemorrhage. Bleeding resolved upon arrival to the emergency department. Patient monitored in the ER for any recurrence of bleeding. None occurred. Next ENT appointment is not for 2 more weeks. Discussed with the patient she will need to be seen sooner than that, soon as possible for recheck. She agrees to call her ENT as soon as possible. Last Recorded V/S: Last Vital Signs Temp 97 F 04/17/20 09:05 Pulse 96 04/17/20 09:05 Resp 16 04/17/20 09:05 BP 129/86 04/17/20 09:05 Pulse Ox 97 04/17/20 09:05 - Re-Assessments/Exams Free Text/Narrative Re-Assessment/Exam: 04/17/20 10:05 Patient is feeling better. She no longer feels the blood dripping down her throat. She does report she still has a taste of blood in her mouth. I reexamined the patient. On reassessment there appears to be less dried blood, no active bleeding currently. Less red than initially on arrival here. Discussed plan of care with patient. Avoid drinking any fluids for now for the next few hours and then restart slowly. No solids. Call her ENT for follow-up within the next 2 days. Departure - Departure Time of Disposition: 10:06 Disposition: Home, Self-Care 01 Clinical Impression: Post-tonsillectomy hemorrhage - Discharge Information Referrals: Rosalino Gonzáles MD [Primary Care Provider] - Newton Orozco MD [Ordering Only Provider] - 1 Day Forms: ED Department Discharge Additional Instructions: Please follow-up with your ENT physician in [place] as soon as possible. Return to the ER if you develop severe bleeding from your tonsillectomy site. The following information is given to patients seen in the emergency department who are being discharged to home. This information is to outline your options for follow-up care. We provide all patients seen in our emergency department with a follow-up referral. The need for follow-up, as well as the timing and circumstances, are variable depending upon the specifics of your emergency department visit. If you don't have a primary care physician on staff, we will provide you with a referral. We always advise you to contact your personal physician following an emergency department visit to inform them of the circumstance of the visit and for follow-up with them and/or the need for any referrals to a consulting specialist. The emergency department will also refer you to a specialist when appropriate. This referral assures that you have the opportunity for follow-up care with a specialist. All of these measure are taken in an effort to provide you with optimal care, which includes your follow-up. Under all circumstances we always encourage you to contact your private physician who remains a resource for coordinating your care. When calling for follow-up care, please make the office aware that this follow-up is from your recent emergency room visit. If for any reason you are refused follow-up, please contact the [facility] Emergency Department at and asked to speak to the emergency department charge nurse. Sepsis Event Note (ED) - Evaluation Sepsis Screening Result: No Definite Risk - Focused Exam Vital Signs: Vital Signs Temp Pulse Resp BP Pulse Ox 04/17/20 09:05 97 F 96 16 129/86 97
[2020-04-17 10:22] VITALS: BP 116/84; PULSE 68
== END 2020-04-17 10:20 | disposition home or self-care (01) ==
LOC: MW.ED 08:53
DX: J95.831 Postprocedural hemorrhage of a respiratory system organ or structure following other procedure (principal); Z88.2 Allergy status to sulfonamides
CPT/HCPCS: 99282; 99283

== ENCOUNTER 2021-01-05 04:58 | Inpatient (IN) | payer BC ==
[2021-01-05] MEDS ORDERED: Sodium Chloride 0.9% 10 ML SDV IV PRN (05:02)
[2021-01-05] MEDS ORDERED: Butorphanol 1 MG/ML SDV IVPUSH PRN (05:02)
[2021-01-05] MEDS ORDERED: Carboprost Tromethamine 250 MCG/1 ML Amp IM PRN (05:02)
[2021-01-05] MEDS ORDERED: Lidocaine 1% 50 ML MDV INJECT PRN (05:02)
[2021-01-05] MEDS ORDERED: Methylergonovine 0.2 MG/1 ML Amp IM PRN (05:02)
[2021-01-05] MEDS ORDERED: Misoprostol 200 MCG Tab PO PRN (05:02)
[2021-01-05] MEDS ORDERED: Ampicillin 2 GM in Sodium Chloride 0.9% 100 ML IV ONE (05:02)
[2021-01-05] MEDS ORDERED: Tranexamic Acid 1,000 MG in Sodium Chloride 0.9% 100 ML IV PRN (05:02)
[2021-01-05] MEDS ORDERED: Sodium Chloride 0.9% 2.5 ML Syringe FLUSH PRN (05:02)
[2021-01-05] MEDS ORDERED: Water For Irrigation,Sterile 1,000 ML Container IRR PRN (05:02)
[2021-01-05] MEDS ORDERED: Sodium Chloride 0.9% 10 ML Syringe FLUSH PRN (05:02)
[2021-01-05] MEDS ORDERED: Ondansetron 4 MG/2 ML SDV IVPUSH PRN (05:02)
[2021-01-05] MEDS ORDERED: Misoprostol 25 MCG (1/4 of 100 MCG) Tab VAG PRN ×2 (05:06)
[2021-01-05] MEDS ORDERED: Terbutaline 1 MG/ML SDV SUBCUT PRN (05:06)
[2021-01-05] MEDS ORDERED: Oxytocin/0.9 % Sodium Chloride 30 UNIT/500 ML BAG IV SCH ×2 (05:15)
[2021-01-05] MEDS: Lactated Ringers 1,000 ML IV SCH ×3 (05:30→12:34)
[2021-01-05] MEDS ORDERED: Ampicillin 2 GM Vial ONE (05:41)
[2021-01-05] MEDS ORDERED: Sodium Chloride 0.9% 100 ML ONE (05:42)
[2021-01-05] MEDS: Ampicillin 1 GM in Sodium Chloride 0.9% 50 ML IV SCH ×2 (09:45→13:44)
[2021-01-05] MEDS ORDERED: ePHEDrine 50 MG/ML SDV IVPUSH PRN (09:58)
[2021-01-05] MEDS ORDERED: Phenylephrine/Normal Saline 100 MCG/ML 10 ML Syringe IVPUSH PRN (09:58)
--- NOTE | 2021-01-05 09:58 | PCM.PREANE ---
Preanesthetic Assessment - Anesthesia/Transfusion/Family Hx Anesthesia History: Prior Anesthesia Without Reaction Family History of Anesthesia Reaction: No Transfusion History: No Prior Transfusion(s) Type of Transfusion Reactions: Reports: Unknown - Physical Assessment NPO Status Date: 01/05/21 NPO Status Time: 08:00 Height: 1.65 m Weight: 74.389 kg ASA Class: 2 - Lab Values: Laboratory Last Values WBC 15.97 K/uL (4.0-11.0) H 01/05/21 05:15 RBC 3.92 M/uL (4.30-5.90) L 01/05/21 05:15 Hgb 10.4 g/dL (12.0-16.0) L 01/05/21 05:15 Hct 32.0 % (36.0-46.0) L 01/05/21 05:15 MCV 81.6 fL (80.0-98.0) 01/05/21 05:15 MCH 26.5 pg (27.0-32.0) L 01/05/21 05:15 MCHC 32.5 g/dL (31.0-37.0) 01/05/21 05:15 RDW Std Deviation 44.6 fl (28.0-62.0) 01/05/21 05:15 RDW Coeff of Carola 15 % (11.0-15.0) 01/05/21 05:15 Plt Count 250 K/uL (150-400) 01/05/21 05:15 MPV 11.70 fL (7.40-12.00) 01/05/21 05:15 Nucleated RBC % 0.4 /100WBC 01/05/21 05:15 Nucleated RBCs # 0 K/uL 01/05/21 05:15 Blood Type A POSITIVE 01/05/21 05:15 Antibody Screen NEGATIVE 01/05/21 05:15 - Allergies Allergies/Adverse Reactions: Allergies Allergy/AdvReac Type Severity Reaction Status Date / Time hydrocodone Allergy Hypotension Verified 11/24/20 09:03 Sulfa (Sulfonamide Allergy Rash Verified 11/24/20 09:03 Antibiotics) - Acknowledgements Anesthesia Type Planned: Epidural Pt an Appropriate Candidate for the Planned Anesthesia: Yes Alternatives and Risks of Anesthesia Discussed w Pt/Guardian: Yes Pt/Guardian Understands and Agrees with Anesthesia Plan: Yes PreAnesthesia Questionnaire - Past Health History Medical/Surgical History: Denies Medical/Surgical History HEENT History: Reports: None Other HEENT History: Tonsillectomy Cardiovascular History: Reports: None Respiratory History: Reports: None Gastrointestinal History: Reports: None Other Gastrointestinal History: GERD with Genitourinary History: Reports: UTI, Recurrent 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: , 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 Musculoskeletal History: Reports: None Neurological History: Reports: None Psychiatric History: Reports: None Endocrine/Metabolic History: Reports: None Hematologic History: Reports: None Immunologic History: Reports: None Oncologic (Cancer) History: Reports: None Dermatologic History: Reports: None - Infectious Disease History Infectious Disease History: Reports: None - Past Surgical History Head Surgeries/Procedures: Reports: None HEENT Surgical History: Reports: Tonsillectomy Other HEENT Surgeries/Procedures: Tonsillectomy 04/11/20 in [place] Cardiovascular Surgical History: Reports: None Respiratory Surgical History: Reports: None GI Surgical History: Reports: None Female Surgical History: Reports: None Endocrine Surgical History: Reports: None Neurological Surgical History: Reports: None Musculoskeletal Surgical History: Reports: None Oncologic Surgical History: Reports: None Dermatological Surgical History: Reports: None - SUBSTANCE USE Tobacco Use Status *Q: Never Tobacco User Second Hand Smoke Exposure: No Recreational Drug Use History: No - HOME MEDS Home Medications: Home Meds Pnv No.95/Ferrous Fum/Folic AC [ Tablet] 1 tab PO DAILY 10/29/20 [History] Ascorbic Acid [Vitamin C] 500 mg PO DAILY 11/24/20 [History] Cholecalciferol (Vitamin D3) [Vitamin D3] 1,000 unit PO DAILY 11/24/20 [History] Mv-Mn/Iron/Folic Acid/Herb 190 [Vitamin D3 Complete Caplet] 1 each PO DAILY 11/24/20 [History] Vitamin E 1,000 unit PO DAILY 11/24/20 [History] - CURRENT (IN HOUSE) MEDS Current Meds: Current Medications Butorphanol Tartrate (Butorphanol 1 Mg/Ml Sdv) 1 mg IVPUSH Q1H PRN PRN Reason: Pain Carboprost Tromethamine (Carboprost Tromethamine 250 Mcg/1 Ml Amp) 250 mcg IM ASDIRECTED PRN PRN Reason: Post Hemorrhage Oxytocin/Sodium Chloride (Oxytocin 30 Unit/500 Ml-Ns) 30 unit in 500 mls @ 999 mls/hr IV TITRATE SUDHA Tranexamic Acid 1,000 mg/ (Sodium Chloride) 110 mls @ 660 mls/hr IV ONETIME PRN PRN Reason: Bleeding Lactated Ringer's (Ringers, Lactated) 1,000 mls @ 150 mls/hr IV ASDIRECTED SUDHA Last Admin: 01/05/21 05:30 Dose: 150 mls/hr Documented by: Oxytocin/Sodium Chloride (Oxytocin 30 Unit/500 Ml-Ns) 30 unit in 500 mls @ 2 mls/hr IV TITRATE [facility]; Protocol Last Admin: 01/05/21 06:18 Dose: 2 munits/min, 2 mls/hr Documented by: Ampicillin Sodium 1 gm/ Sodium (Chloride) 50 mls @ 100 mls/hr IV Q4H [facility] Last Admin: 01/05/21 09:45 Dose: 100 mls/hr Documented by: Lidocaine HCl (Lidocaine 1% 50 Ml Mdv) 50 ml INJECT ONETIME PRN PRN Reason: Laceration repair Methylergonovine Maleate (Methylergonovine 0.2 Mg/1 Ml Amp) 0.2 mg IM ASDIRECTED PRN PRN Reason: Post Hemorrhage Misoprostol (Misoprostol 200 Mcg Tab) 200 mcg PO ONETIME PRN PRN Reason: Post Hemorrhage Misoprostol (Misoprostol 25 Mcg (1/4 Of 100 Mcg) Tab) 25 mcg VAG ONETIME PRN PRN Reason: Cervical Ripening Misoprostol (Misoprostol 25 Mcg (1/4 Of 100 Mcg) Tab) 25 mcg VAG Q4H PRN PRN Reason: Cervical Ripening Ondansetron HCl (Ondansetron 4 Mg/2 Ml Sdv) 4 mg IVPUSH Q6H PRN PRN Reason: Nausea/Vomiting Sodium Chloride (Sodium Chloride 0.9% 10 Ml Syringe) 10 ml FLUSH ASDIRECTED PRN PRN Reason: Keep Vein Open Sodium Chloride (Sodium Chloride 0.9% 2.5 Ml Syringe) 2.5 ml FLUSH ASDIRECTED PRN PRN Reason: Keep Vein Open Sodium Chloride (Sodium Chloride 0.9% 10 Ml Sdv) 10 ml IV ASDIRECTED PRN PRN Reason: IV Use Sterile Water (Water For Irrigation,Sterile 1,000 Ml Container) 1,000 ml IRR ASDIRECTED PRN PRN Reason: delivery Terbutaline Sulfate (Terbutaline 1 Mg/Ml Sdv) 0.25 mg SUBCUT ASDIRECTED PRN PRN Reason: Tacysystole Discontinued Medications Ampicillin Sodium (Ampicillin 2 Gm Vial) Confirm Administered Dose 2 gm .ROUTE .STK-MED ONE Stop: 01/05/21 05:42 Ampicillin Sodium 2 gm/ Sodium (Chloride) 100 mls @ 200 mls/hr IV ONETIME ONE Stop: 01/05/21 05:31 Last Admin: 01/05/21 05:49 Dose: 200 mls/hr Documented by: Sodium Chloride (Normal Saline) Confirm Administered Dose 100 mls @ as directed .ROUTE .STK-MED ONE Stop: 01/05/21 05:43
[2021-01-05] MEDS ORDERED: Ropivacaine HCl/PF 100 ML ONE (10:43)
[2021-01-05] MEDS ORDERED: fentaNYL 100 MCG/2 ML SDV ONE (10:43)
--- NOTE | 2021-01-05 11:14 | PCM.PRNOTE ---
- Free Text/Narrative Note: Anes Note Patient requests epidural for L&D. Sitting position. Level L3-L4 midline appraoch. Sterile technique. Chloraprep scrub to lumbar area. Sterile fenestrated drape applied. Epidural space easily achieved single attempt with ease using KATIANA technique. KATIANA at 3 cm. Cath threaded 5 cm with ease. Cath secured a t skin using sterile clear adhesive dressing. Test 1045 3 cc 1.5% lido with epi negative. 1047 Load 10 cc 0.2% ropiviciane with 1 mcg cc fentanyl in slow divided doses. 1053 Pump started with 90 cc same solution. Rate is 8 cc hr with 6 cc q 20 min prn bolus. [place] well. Time with patient [id number] [facility] SERVICE COORDINATOR
[2021-01-05] MEDS ORDERED: Docusate Sodium 100 MG Cap PO PRN (15:48)
[2021-01-05] MEDS ORDERED: Acetaminophen 500 MG Tab PO PRN ×2 (15:48)
[2021-01-05] MEDS ORDERED: oxyCODONE 5 MG Tab PO PRN (15:48)
[2021-01-05] MEDS ORDERED: Bisacodyl 10 MG Supp RECTAL PRN (15:48)
[2021-01-05] MEDS ORDERED: Benzocaine/Menthol 20%-0.5% Spray 78 GM Cannister TOP PRN (15:48)
[2021-01-05] MEDS ORDERED: Lanolin 100% Cream 7 GM Tube TOP PRN (15:48)
[2021-01-05] MEDS ORDERED: Witch Hazel Medicated Pads 40/Jar TOP PRN (15:48)
[2021-01-05] MEDS ORDERED: Ibuprofen 800 MG Tab PO PRN (15:48)
[2021-01-05] MEDS ORDERED: Ibuprofen 400 MG Tab PO PRN (15:48)
--- NOTE | 2021-01-05 15:52 | PCM.OPNOTE ---
- General Post-Op/Procedure Note Date of Surgery/Procedure: 01/05/21 Operative Procedure(s): /2nd vaginal laceration repaired Findings: Viable female APGARs 8, 9 weight pending. Spontaneous delivery intact placenta with 3V cord Pre Op Diagnosis: 38/6 week IUP. LGA fetus. GBBS + Post-Op Diagnosis: Same Anesthesia Technique: Epidural Primary Surgeon: Diana Castellanos EBL in mLs: 300 Complications: none known Condition: Good
--- NOTE | 2021-01-05 18:45 | OR ---
SURGEON: Diana Castellanos M.D. DATE OF PROCEDURE: 01/05/2021 PREOPERATIVE DIAGNOSES: 1. A 38-6/7 weeks intrauterine . 2. Large for gestational age fetus. 3. Group B beta strep positive. POSTOPERATIVE DIAGNOSES: 1. A 38-6/7 weeks intrauterine . 2. Large for gestational age fetus. 3. Group B beta strep positive. PROCEDURES: 1. Spontaneous vaginal delivery. 2. Second-degree vaginal laceration repair. PRIMARY SURGEON: Diana Castellanos M.D. ANESTHESIA: Epidural. ESTIMATED BLOOD LOSS: 300 mL. COMPLICATIONS: None known. FINDINGS: Viable female. scores 8 at one minute and 9 at five minutes. Weight of 3970 g or 8 pounds 12 ounces. Spontaneous delivery, intact placenta, and 3- vessel cord. DISPOSITION: to nursery, mom in LDRP. PROCEDURE DETAILS: Edwige is a 30-year-old female who presents for scheduled induction of labor due to her request. She strongly does not want to deliver the following day, which is her other child's birthday. Complications of are LGA fetus and group B beta strep positive. Risks of induction have been discussed. Proper consent obtained. The patient had a favorable cervix. On admission, she was found to be 3 cm, 70% effaced, and -2 station. Therefore, Pitocin was initiated. She received group B beta strep prophylaxis. Category 1 heart tones. After receiving a second dose of prophylactic antibiotics and undergoing regional anesthesia in the form of epidural, the patient underwent amniotomy. At that time, she was found to be 4 cm to 5 cm, 80% effaced, and -2 station. Large amount of clear fluid was returned. The patient continued to progress on Pitocin and shortly after 2 p.m. was found to be complete, 100% effaced, 0 station, began pushing efforts, and pushed readily with category 1 heart tones. The patient was able to deliver to a +4 station, was placed in modified dorsal lithotomy position, and was prepped and draped in the usual aseptic manner. With complete continued pushing efforts, was able to deliver infant's head atraumatically spontaneously, and followed by anterior shoulder, posterior shoulder, and remainder of body. The 's oropharynx and nares were bulb suctioned. Infant was handed off to her mother with attending nursing staff at her side. After a delay, cord was clamped x2 and cut. Cord arterial, cord venous, and cord blood sampling obtained. Light pressure was applied while the placenta was delivered spontaneously intact. Vigorous fundal uterine massage was then applied while 30 units of Pitocin was delivered in 500 mL of IV fluid. Upon inspection of cervix, vaginal sidewalls, and perineum, there was found to be a second-degree midline vaginal laceration. Perineum itself was intact. It was repaired using 3-0 Vicryl in continuous running locked fashion. Hemostasis appeared evident. The patient tolerated the procedure well overall. Hemostasis appeared evident. Uterus remained firm. The sponge, instrument count, and needle count were correct. The patient remained in LDRP, infant to nursery. PACO / MILY /[id number]
--- NOTE | 2021-01-06 07:32 | PCM48HPAN ---
Post Anesthesia Note - EVALUATION WITHIN 48HRS OF ANESTHETIC Vital Signs in Normal Range: Yes Patient Participated in Evaluation: Yes Respiratory Function Stable: Yes Airway Patent: Yes Cardiovascular Function Stable: Yes Hydration Status Stable: Yes Pain Control Satisfactory: Yes (Pain 2/10 at rest, slightly more but tolerable with activity.) Nausea and Vomiting Control Satisfactory: Yes (Taking PO well, denies nausea.) Mental Status Recovered: Yes Vital Signs: Last Vital Signs Temp 36.9 C 01/06/21 06:05 Pulse 71 01/06/21 06:05 Resp 16 01/06/21 06:05 BP 105/62 01/06/21 06:05 Pulse Ox 98 01/06/21 06:05 - COMMENTS/OBSERVATIONS Free Text/Narrative:: Ambulating independently. Reports full return of strength and sensation to BLE.
--- NOTE | 2021-01-06 12:52 | PCM.PNPP ---
- General Info Date of Service: 01/06/21 Functional Status: Reports: Pain Controlled, Tolerating Diet, Ambulating, Urinating - Review of Systems General: Reports: Fatigue. Denies: Fever, Weakness Pulmonary: Denies: Shortness of Breath Cardiovascular: Denies: Chest Pain, Palpitations, Lightheadedness Gastrointestinal: Denies: Abdominal Pain, Nausea, Vomiting Genitourinary: Denies: Flank Pain Musculoskeletal: Reports: No Symptoms Skin: Reports: No Symptoms Neurological: Reports: No Symptoms Psychiatric: Reports: No Symptoms - General Info Date of Service: 01/06/21 - Patient Data Vital Signs - Most Recent: Last Vital Signs Temp 36.3 C 01/06/21 08:37 Pulse 66 01/06/21 08:37 Resp 16 01/06/21 08:37 BP 119/67 01/06/21 08:37 Pulse Ox 98 01/06/21 08:37 Weight - Most Recent: 74.389 kg I&O - Last 24 Hours: Intake & Output 01/05/21 01/06/21 01/06/21 22:59 06:59 14:59 Output Total Balance @ Lab Results - Last 24 Hours: Laboratory Results - last 24 hr 01/05/21 01/06/21 Range/Units 15:25 06:27 Hgb 10.6 L (12.0-16.0) g/dL Hct 32.8 L (36.0-46.0) % Cord ABG pH 7.229 (7.18-7.38) Cord ABG Base Excess -5 (-10--2) Cord VBG pH 7.341 (7.25-7.45) Cord VBG Base Excess -4 (-10--2) Med Orders - Current: Current Medications Acetaminophen (Acetaminophen 500 Mg Tab) 500 mg PO Q4H PRN PRN Reason: Pain Acetaminophen (Acetaminophen 500 Mg Tab) 1,000 mg PO Q4H PRN PRN Reason: Pain Last Admin: 01/06/21 02:39 Dose: 1,000 mg Documented by: Benzocaine/Menthol (Benzocaine/Menthol 20%-0.5% [place] 78 Gm Cannister) 78 gm TOP ASDIRECTED PRN PRN Reason: Perineal Comfort Measure Bisacodyl (Bisacodyl 10 Mg Supp) 10 mg RECTAL ONETIME PRN PRN Reason: Constipation Docusate Sodium (Docusate Sodium 100 Mg Cap) 100 mg PO BID PRN PRN Reason: Constipation Last Admin: 01/06/21 09:48 Dose: 100 mg Documented by: Emollient Ointment (Lanolin 100% Cream 7 Gm Tube) 0 gm TOP ASDIRECTED PRN PRN Reason: Sore Nipples Ephedrine Sulfate (Ephedrine 50 Mg/Ml Sdv) 10 mg IVPUSH Q5M PRN PRN Reason: Hypotension Ibuprofen (Ibuprofen 400 Mg Tab) 400 mg PO Q4H PRN PRN Reason: Pain Ibuprofen (Ibuprofen 800 Mg Tab) 800 mg PO Q6H PRN PRN Reason: Pain Last Admin: 01/05/21 21:23 Dose: 800 mg Documented by: Oxycodone HCl (Oxycodone 5 Mg Tab) 5 mg PO Q2H PRN PRN Reason: Pain Phenylephrine HCl (Phenylephrine/Normal Saline 100 Mcg/Ml 10 Ml Syringe) 0.1 mg IVPUSH Q5M PRN PRN Reason: Hypotension Sodium Chloride (Sodium Chloride 0.9% 10 Ml Syringe) 10 ml FLUSH ASDIRECTED PRN PRN Reason: Keep Vein Open [place] ([place] Medicated Pads 40/Jar) 1 pad TOP ASDIRECTED PRN PRN Reason: comfort care Last Admin: 01/05/21 17:48 Dose: 1 container Documented by: Discontinued Medications Ampicillin Sodium (Ampicillin 2 Gm Vial) Confirm Administered Dose 2 gm .ROUTE .STK-MED ONE Stop: 01/05/21 05:42 Butorphanol Tartrate (Butorphanol 1 Mg/Ml Sdv) 1 mg IVPUSH Q1H PRN PRN Reason: Pain Carboprost Tromethamine (Carboprost Tromethamine 250 Mcg/1 Ml Amp) 250 mcg IM ASDIRECTED PRN PRN Reason: Post Hemorrhage Fentanyl (Fentanyl 100 Mcg/2 Ml Sdv) Confirm Administered Dose 100 mcg .ROUTE .STK-MED ONE Stop: 01/05/21 10:44 Last Admin: 01/06/21 08:00 Dose: Not Given Documented by: Oxytocin/Sodium Chloride (Oxytocin 30 Unit/500 Ml-Ns) 30 unit in 500 mls @ 999 mls/hr IV TITRATE SUDHA Tranexamic Acid 1,000 mg/ (Sodium Chloride) 110 mls @ 660 mls/hr IV ONETIME PRN PRN Reason: Bleeding Ampicillin Sodium 2 gm/ Sodium (Chloride) 100 mls @ 200 mls/hr IV ONETIME ONE Stop: 01/05/21 05:31 Last Admin: 01/05/21 05:49 Dose: 200 mls/hr Documented by: Lactated Ringer's (Ringers, Lactated) 1,000 mls @ 150 mls/hr IV ASDIRECTED [facility] Last Admin: 01/05/21 12:34 Dose: 150 mls/hr Documented by: Oxytocin/Sodium Chloride (Oxytocin 30 Unit/500 Ml-Ns) 30 unit in 500 mls @ 2 mls/hr IV TITRATE [facility]; Protocol Last Admin: 01/05/21 06:18 Dose: 2 munits/min, 2 mls/hr Documented by: Sodium Chloride (Normal Saline) Confirm Administered Dose 100 mls @ as directed .ROUTE .STK-MED ONE Stop: 01/05/21 05:43 Last Admin: 01/06/21 07:59 Dose: Not Given Documented by: Ampicillin Sodium 1 gm/ Sodium (Chloride) 50 mls @ 100 mls/hr IV Q4H [facility] Last Admin: 01/05/21 13:44 Dose: 100 mls/hr Documented by: Ropivacaine (Naropin 0.2%) Confirm Administered Dose 100 mls @ as directed .ROUTE .STK-MED ONE Stop: 01/05/21 10:44 Last Admin: 01/06/21 07:59 Dose: Not Given Documented by: Lidocaine HCl (Lidocaine 1% 50 Ml Mdv) 50 ml INJECT ONETIME PRN PRN Reason: Laceration repair Methylergonovine Maleate (Methylergonovine 0.2 Mg/1 Ml Amp) 0.2 mg IM ASDIRECTED PRN PRN Reason: Post Hemorrhage Misoprostol (Misoprostol 200 Mcg Tab) 200 mcg PO ONETIME PRN PRN Reason: Post Hemorrhage Misoprostol (Misoprostol 25 Mcg (1/4 Of 100 Mcg) Tab) 25 mcg VAG ONETIME PRN PRN Reason: Cervical Ripening Misoprostol (Misoprostol 25 Mcg (1/4 Of 100 Mcg) Tab) 25 mcg VAG Q4H PRN PRN Reason: Cervical Ripening Ondansetron HCl (Ondansetron 4 Mg/2 Ml Sdv) 4 mg IVPUSH Q6H PRN PRN Reason: Nausea/Vomiting Sodium Chloride (Sodium Chloride 0.9% 2.5 Ml Syringe) 2.5 ml FLUSH ASDIRECTED PRN PRN Reason: Keep Vein Open Sodium Chloride (Sodium Chloride 0.9% 10 Ml Sdv) 10 ml IV ASDIRECTED PRN PRN Reason: IV Use Sterile Water (Water For Irrigation,Sterile 1,000 Ml Container) 1,000 ml IRR ASDIRECTED PRN PRN Reason: delivery Terbutaline Sulfate (Terbutaline 1 Mg/Ml Sdv) 0.25 mg SUBCUT ASDIRECTED PRN PRN Reason: Tacysystole - Infant Interaction Support Person: - Recovery Exam Fundal Tone: Firm Fundal Level: 1 Fingerbreadths Below Umbilicus Fundal Placement: Midline Lochia Amount: Scant Perineum Description: Intact, Minimal Bruising/Swelling Episiotomy/Laceration: Approximated Bladder Status: Voiding - Exam Lungs: Normal Respiratory Effort Cardiovascular: Regular Rate, Regular Rhythm GI/Abdominal Exam: Normal Bowel Sounds, Soft Extremities: Pedal Edema (trace) Skin: Warm, Dry, Intact Neurological: No New Focal Deficit - Problem List & Annotations (1) (normal spontaneous vaginal delivery) SNOMED Code(s): 63612433, 926042592 Code(s): O80 - ENCOUNTER FOR FULL-TERM UNCOMPLICATED DELIVERY Status: Acute Priority: Medium Current Visit: No - Problem List Review Problem List Initiated/Reviewed/Updated: Yes - My Orders Last 24 Hours: My Active Orders 01/05/21 15:48 Patient Status [ADT] Routine May Shower [RC] ASDIRECTED Notify Provider Vital Signs [RC] ASDIRECTED Up ad Tarah [RC] ASDIRECTED Vital Signs [RC] PER UNIT ROUTINE Acetaminophen [Tylenol Extra Strength] 1,000 mg PO Q4H PRN Acetaminophen [Tylenol Extra Strength] 500 mg PO Q4H PRN Benzocaine/Menthol [Dermoplast Pain Relief 20%-0.5% [place]] 78 gm TOP ASDIRECTED PRN Docusate Sodium [Colace] 100 mg PO BID PRN Ibuprofen [Motrin] 400 mg PO Q4H PRN Ibuprofen [Motrin] 800 mg PO Q6H PRN Lanolin [Lansinoh HPA] See Dose Instructions TOP ASDIRECTED PRN bisacodyL [Dulcolax] 10 mg RECTAL ONETIME PRN oxyCODONE 5 mg PO Q2H PRN [place] [Tucks] 1 pad TOP ASDIRECTED PRN Assess Lochia [WOMSER] Per Unit Routine Assess Uterine Involution [WOMSER] Per Unit Routine Ice Therapy [OM.PC] Per Unit Routine Perineal Care [OM.PC] Per Unit Routine Peripheral IV Discontinue [OM.PC] Routine Sitz Bath [OM.PC] Per Unit Routine 01/05/21 15:49 Cooling Warming Measures [RC] ASDIRECTED 01/05/21 Dinner Regular Diet [DIET] 01/06/21 12:50 Ready for Discharge [RC] PER UNIT ROUTINE - Assessment Assessment:: PPD 1 status post /2nd vaginal laceration, repaired - Plan Plan:: VS and labs are reassuring. Patient doing well and would like to go home later today. Discharge instructions reviewed. Follow up at [facility] 4 weeks. Discharge to home today.
[2021-01-06 16:40] VITALS: BP 124/68; PULSE 65
== END 2021-01-06 18:35 | disposition home or self-care (01) | DRG 560 ==
LOC: MW.OBCHECK 04:58 → MW.OB 05:00 → MW.OBCHECK 05:02 → MW.OB 05:02 → OBSVTOIN 15:25 → MW.OB 18:22
PROVIDERS: ADMIT Obstetrics & Gynecology; ATTEND Obstetrics & Gynecology
PROC: 10E0XZZ Delivery of Products of Conception, External Approach (ICD-10-PCS; principal; 2021-01-05)
PROC: 0KQM0ZZ Repair Perineum Muscle, Open Approach (ICD-10-PCS; 2021-01-05)
PROC: 3E0R3BZ Introduction of Anesthetic Agent into Spinal Canal, Percutaneous Approach (ICD-10-PCS; 2021-01-05)
PROC: 00HU33Z Insertion of Infusion Device into Spinal Canal, Percutaneous Approach (ICD-10-PCS; 2021-01-05)
DX: O99.824 Streptococcus B carrier state complicating childbirth (principal); O36.63X0 Maternal care for excessive fetal growth, third trimester, not applicable or unspecified; Z3A.38 38 weeks gestation of pregnancy; Z37.0 Single live birth; O70.1 Second degree perineal laceration during delivery
CPT/HCPCS: 01967; 36415; 51701; 51702; 59025; 59409; 59414; 82803; 85014; 85018; 85027; 86592; 86850; 86900; 86901; A9270-GY; J0290; J2590; J2795; J3010; J7120

== ENCOUNTER 2022-08-07 01:06 | Inpatient (IN) | payer BC ==
[2022-08-07] MEDS ORDERED: Lidocaine 1% 50 ML MDV INJECT PRN (01:22)
[2022-08-07] MEDS ORDERED: Water For Irrigation,Sterile 1,000 ML Container IRR PRN (01:22)
[2022-08-07] MEDS ORDERED: Butorphanol 1 MG/ML SDV IVPUSH PRN (01:22)
[2022-08-07] MEDS ORDERED: Methylergonovine 0.2 MG/1 ML Amp IM PRN (01:22)
[2022-08-07] MEDS ORDERED: Carboprost Tromethamine 250 MCG/1 ML Amp IM PRN (01:22)
[2022-08-07] MEDS ORDERED: Tranexamic Acid 1,000 MG in Sodium Chloride 0.9% 100 ML IV PRN (01:22)
[2022-08-07] MEDS ORDERED: Misoprostol 200 MCG Tab PO PRN (01:22)
[2022-08-07] MEDS ORDERED: Ampicillin 2 GM in Sodium Chloride 0.9% 100 ML IV ONE (01:27)
[2022-08-07] MEDS ORDERED: Sodium Chloride 0.9% 20 ML SDV IV PRN (01:27)
[2022-08-07] MEDS ORDERED: Sodium Chloride 0.9% 2.5 ML Syringe FLUSH PRN (01:27)
[2022-08-07] MEDS ORDERED: Sodium Chloride 0.9% 10 ML Syringe FLUSH PRN (01:27)
[2022-08-07] MEDS ORDERED: Oxytocin/0.9 % Sodium Chloride 30 UNIT/500 ML BAG IV SCH ×2 (01:30→08:45)
[2022-08-07] MEDS ORDERED: Lactated Ringers 1,000 ML IV SCH (01:30)
[2022-08-07] MEDS ORDERED: Sodium Chloride 0.9% 100 ML ONE (01:39)
[2022-08-07] MEDS ORDERED: Ampicillin 2 GM AdvVial IV ONE (01:39)
[2022-08-07] MEDS ORDERED: Ropivacaine/PF 400 MG/200 ML PCA ONE (03:51)
[2022-08-07] MEDS ORDERED: Phenylephrine HCl In 0.9% NaCl 1 MG/10 ML Vial IVPUSH PRN (04:02)
[2022-08-07] MEDS ORDERED: ePHEDrine 50 MG/ML SDV IVPUSH PRN ×2 (04:02)
[2022-08-07] MEDS ORDERED: Ropivacaine HCl/PF 400 MG in Premix Bag 1 BAG EPIDUR SCH (04:15)
[2022-08-07] MEDS ORDERED: Phenylephrine HCl In 0.9% NaCl 1 MG/10 ML Vial IVPUSH SCH (04:15)
[2022-08-07] MEDS ORDERED: Ampicillin 1 GM in Sodium Chloride 0.9% 50 ML IV SCH (06:00)
[2022-08-07] MEDS ORDERED: Bisacodyl 10 MG Supp RECTAL PRN (10:10)
[2022-08-07] MEDS ORDERED: Acetaminophen 500 MG Tab PO PRN (10:10)
[2022-08-07] MEDS ORDERED: Benzocaine/Menthol 20%-0.5% Spray 78 GM Cannister TOP PRN (10:10)
[2022-08-07] MEDS ORDERED: Ibuprofen 400 MG Tab PO PRN (10:10)
[2022-08-07] MEDS ORDERED: Lanolin 100% Cream 7 GM Tube TOP PRN (10:10)
[2022-08-07] MEDS ORDERED: Witch Hazel Medicated Pads 40/Jar TOP PRN (10:10)
[2022-08-07] MEDS ORDERED: oxyCODONE 5 MG Tab PO PRN (10:10)
[2022-08-07] MEDS: Acetaminophen 500 MG Tab PO PRN ×2 (13:39→17:52)
[2022-08-07] MEDS: Ibuprofen 800 MG Tab PO PRN (13:40)
[2022-08-07] MEDS: Docusate Sodium 100 MG Cap PO PRN (18:28)
[2022-08-08] MEDS: Ibuprofen 800 MG Tab PO PRN ×2 (00:31→11:20)
[2022-08-08] MEDS: Acetaminophen 500 MG Tab PO PRN (07:08)
[2022-08-08] MEDS: Docusate Sodium 100 MG Cap PO PRN (07:08)
[2022-08-08 10:33] VITALS: BP 104/70; PULSE 62
== END 2022-08-08 13:18 | disposition home or self-care (01) | DRG 560 ==
LOC: MW.OBCHECK 01:06 → MW.OB 01:07 → MW.OBCHECK 01:22 → MW.OB 01:22 → OBSVTOIN 09:47 → MW.OB 14:35
PROVIDERS: ADMIT Obstetrics & Gynecology; ATTEND Obstetrics & Gynecology
PROC: 10E0XZZ Delivery of Products of Conception, External Approach (ICD-10-PCS; principal; 2022-08-07)
PROC: 10907ZC Drainage of Amniotic Fluid, Therapeutic from Products of Conception, Via Natural or Artificial Opening (ICD-10-PCS; 2022-08-07)
PROC: 0HQ9XZZ Repair Perineum Skin, External Approach (ICD-10-PCS; 2022-08-07)
PROC: 3E0R3BZ Introduction of Anesthetic Agent into Spinal Canal, Percutaneous Approach (ICD-10-PCS; 2022-08-07)
PROC: 00HU33Z Insertion of Infusion Device into Spinal Canal, Percutaneous Approach (ICD-10-PCS; 2022-08-07)
DX: O99.824 Streptococcus B carrier state complicating childbirth (principal); Z37.0 Single live birth; O99.62 Diseases of the digestive system complicating childbirth; K21.9 Gastro-esophageal reflux disease without esophagitis; Z86.16 Personal history of COVID-19; O70.0 First degree perineal laceration during delivery; Z20.822 Contact with and (suspected) exposure to COVID-19; Z88.5 Allergy status to narcotic agent; Z88.2 Allergy status to sulfonamides
CPT/HCPCS: 36415; 51702; 59025; 59409; 82803; 85014; 85018; 85027; 86592; 86850; 86900; 86901; A9270-GY; J0290; J2590; J2795; J7120; U0002

== ENCOUNTER 2023-02-15 21:32 | Emergency (ER) | payer BC ==
[2023-02-15 21:58] VITALS: BP 147/76; PULSE 83
== END 2023-02-16 00:07 | disposition home or self-care (01) ==
LOC: MW.ED 21:32
DX: S52.571A Other intraarticular fracture of lower end of right radius, initial encounter for closed fracture (principal); Z86.16 Personal history of COVID-19; Z88.5 Allergy status to narcotic agent; Z88.2 Allergy status to sulfonamides; W18.30XA Fall on same level, unspecified, initial encounter
CPT/HCPCS: 29125; 73090-26-RT; 73090-RT; 73110-26-RT; 73110-RT; 73130-26-RT; 73130-RT; 99283